=== PATIENT | female | born 1990 | race Caucasian/White ===

== ENCOUNTER 2022-02-22 00:32 | Emergency (ER) | payer SELFPAY ==
[~2022-02-22] VITALS: Ht 170.2 cm; Wt 62.0 kg
[2022-02-22 02:56] LABS: BASOPHILS % 0.5 % (0.0-2.0); EOSINOPHILS % 0.4 % (0.0-5.0); HEMATOCRIT. 37.2 % (36.0-48.0); HEMOGLOBIN. 12.6 g/dL (12.0-16.0); LYMPHOCYTES % 27.8 % (20.0-50.0); MEAN CORPUSCULAR HEMOGLOBIN 32.4 pg (28.0-32.0); MEAN CORPUSCULAR VOLUME 95.7 fL (81.0-99.0); MEAN PLATELET VOLUME 8.2 fl (7.4-10.4); MONOCYTES % 6.5 % (2.0-8.0); NEUTROPHILS % 64.8 % (40.0-76.0); PLATELET 221 x1000/uL (130-400); RED BLOOD CELL COUNT 3.89 mill/uL (4.2-5.4); RED CELL DISTRIBUTION WIDTH 13.2 % (11.6-14.6)
[2022-02-22 03:05] LABS: CHLORIDE 108 mEq/L (98-107); HCG SCREEN NEGATIVE
[2022-02-22 03:20] LABS: T4 FREE 1.43 ng/dL (0.76-1.46)
[2022-02-22 04:00] VITALS: BP 118/70
[2022-02-22] MEDS ORDERED: LORAZEPAM 1MG TABLET PO ONE (04:00)
== END 2022-02-22 04:27 | disposition home or self-care (01) ==
LOC: ER 00:32
DX: F41.9 Anxiety disorder, unspecified (principal); R00.2 Palpitations; F12.10 Cannabis abuse, uncomplicated
CPT/HCPCS: 36415; 71045; 80053; 83735; 84439; 84443; 84703; 85025; 93005; 99285; Z7610